=== PATIENT | female | born 1990 | race Caucasian/White ===

== ENCOUNTER 2017-03-02 09:48 | Emergency (ER) | payer MEDICAID ==
[~2017-03-02] VITALS: Ht 152.4 cm; Wt 60.0 kg
[2017-03-02 09:50] VITALS: Ht 152.4 cm; Wt 60.0 kg
[2017-03-02] MEDS ORDERED: SOD CHLORIDE 0.9% 1,000 ML IV STA (10:28)
[2017-03-02] MEDS ORDERED: METOCLOPRAMIDE 10 MG INJ IV STA (10:28)
[2017-03-02 10:55] LABS: ADD SCAN DIFF NO
[2017-03-02 10:57] LABS: BASOPHILS % 0.2 % (0.0-2.0); EOSINOPHILS % 0.2 % (0.0-7.0); HEMATOCRIT 36.8 % (37.0-47.0); LYMPHOCYTES # 0.8 10^3/ul (0.8-2.9); LYMPHOCYTES % 7.2 % (15.0-51.0); MEAN CORPUSCULAR HEMOGLOBIN 29.1 pg (29.0-33.0); MEAN CORPUSCULAR HGB CONC 35.3 g/dl (32.0-37.0); MEAN CORPUSCULAR VOLUME 82.3 fl (82.0-101.0); MONOCYTE # 0.5 10^3/ul (0.3-0.9); NEUTROPHIL # 9.1 10^3/ul (1.6-7.5); NEUTROPHILS % 87.1 % (39.0-77.0); PLATELET COUNT 293 10^3/UL (140-415); RED BLOOD COUNT 4.47 10^6/ul (4.20-5.40); RED CELL DISTRIBUTION WIDTH 13.2 % (11.5-14.5); WHITE BLOOD COUNT 10.5 10^3/ul (4.8-10.8)
[2017-03-02 10:59] LABS: ADD UMIC YES; URINE BILIRUBIN (Dip) NEGATIVE (NEGATIVE); URINE BLOOD (Dip) TRACE (NEGATIVE); URINE COLOR LT. YELLOW (YELLOW); URINE GLUCOSE (Dip) NEGATIVE (NEGATIVE); URINE KETONES (Dip) 3+ (NEGATIVE); URINE LEUKOCYTE ESTERASE (Dip) 1+ (NEGATIVE); URINE NITRITE (Dip) NEGATIVE (NEGATIVE); URINE TOTAL PROTEIN (Dip) 1+ (NEGATIVE); URINE UROBILINOGEN (Dip) 1.0 E.U./dL (0.1-1.0)
[2017-03-02 11:16] LABS: BACTERIA,URINE OCCASIONAL; URINE RBCS 0-2 /HPF (0)
--- NOTE | 2017-03-02 11:19 | RADRPT ---
PROCEDURE: OBSTETRICAL ULTRASOUND WITH ENDOVAGINAL IMAGES CLINICAL INDICATION: PAIN VOMIT TECHNIQUE: Multiple sonographic images of the pelvis were obtained utilizing a transabdominal and endovaginal technique. The images were reviewed on a PACS workstation. COMPARISON: None. LMP: 11/27/2016 FINDINGS: There is a single live intrauterine with heart rate of 174 beats per minute and [place] n-rump length of 7.53 cm which is consistent with a gestational age of 13 weeks, 4 days . The estimated date of delivery by ultrasound is 09/03/2017 . The estimated gestational age by LMP is 13 weeks, 4 days . The estimated date of delivery by LMP is 09/03/2017 . Bilateral ovaries are not visualized. There are no abnormal adnexal masses. No significant pelvic free fluid is identified. IMPRESSION: Single live intrauterine consistent with a gestational age of 13 weeks, 4 days . The estimated date of delivery is 09/03/2017 . Dating by ultrasound is consistent with dating by LMP. Bilateral ovaries are not visualized. There are no abnormal adnexal masses. RPTAT: EE Physician Eleanor Date Time Electronically viewed and signed by Physician Eleanor on 03/02/2017 11:19 /
[2017-03-02 11:37] LABS: ALBUMIN/GLOBULIN RATIO 1.61; BILIRUBIN,INDIRECT 0.4 mg/dl (0-1.1); BILIRUBIN,TOTAL 0.4 mg/dl (0.2-1.3); CALCIUM 10.1 mg/dl (8.4-10.2); CREATININE 0.53 mg/dl (0.44-1.00); POTASSIUM 3.8 mmol/L (3.5-5.1); TOTAL PROTEIN 8.1 g/dl (6.1-8.1)
[2017-03-02] MEDS ORDERED: SOD CHLORIDE 0.9% 1,000 ML IV ONE (11:43)
[2017-03-02] MEDS ORDERED: METO10TA92 PO (12:43)
--- NOTE | 2017-03-02 12:48 | ERD ---
ER Documentation Chief Complaint Date/Time DATE: 03/02/17 TIME: 12:46 Chief Complaint 12 WEEKS WITH VOMITING HPI This 26-year-old female who is a G1 para 0 presents with history of vomiting since early . The vomit is nonbilious nonbloody. She denies any vaginal bleeding or abdominal pain or diarrhea. She is taking Zofran provided by her OB without relief. ROS All systems reviewed and are negative except as per history of present illness. Medications Home Meds Active Scripts Metoclopramide* (Reglan*) 10 Mg Tablet, 10 MG PO Q6 Y for NAUSEA AND/OR VOMITING , #20 TAB Prov:ITZEL MCGINNIS MD 03/02/17 Allergies Allergies: Coded Allergies: Unknown: Unable to obtain (Unverified , 03/02/17) PMhx/Soc Medical and Surgical Hx: pt denies Medical Hx, pt denies Surgical Hx Hx Substance Use: No Hx Tobacco Use: No Smoking Status: Never smoker Physical Exam Vitals Vital Signs Date Time Temp Pulse Resp B/P Pulse Ox O2 Delivery O2 Flow Rate FiO2 03/02/17 09:50 98.1 99 18 119/82 99 Physical Exam Const: [] Alert, dry lips no apparent distress. Head: Atraumatic Eyes: Normal Conjunctiva ENT: Normal External Ears, Nose and Mouth. Her lips otherwise no acute findings Neck: Full range of motion..~ No meningismus. Resp: Clear to auscultation bilaterally Cardio: Regular rate and rhythm, no murmurs Abd: Soft, non tender, non distended. Normal bowel sounds Skin: No petechiae or rashes Back: No midline or flank tenderness Ext: No cyanosis, or edema Neur: Awake and alert Psych: Normal Mood and Affect Result Diagram: 03/02/17 1047 03/02/17 1047 Results 24 hrs Laboratory Tests Test 03/02/17 10:47 White Blood Count 10.510^3/ul Red Blood Count 4.4710^6/ul Hemoglobin 13.0g/dl Hematocrit 36.8% Mean Corpuscular Volume 82.3fl Mean Corpuscular Hemoglobin 29.1pg Mean Corpuscular Hemoglobin Concent 35.3g/dl Red Cell Distribution Width 13.2% Platelet Count 40795^3/UL Mean Platelet Volume 11.0fl Neutrophils % 87.1% Lymphocytes % 7.2% Monocytes % 5.0% Eosinophils % 0.2% Basophils % 0.2% Nucleated Red Blood Cells % 0.0/100WBC Neutrophils # 9.110^3/ul Lymphocytes # 0.810^3/ul Monocytes # 0.510^3/ul Eosinophils # 0.010^3/ul Basophils # 0.010^3/ul Nucleated Red Blood Cells # 0.010^3/ul Urine Color LT. YELLOW Urine Clarity SLIGHTLY CLOUDY Urine pH 6.0 Urine Specific [place] >=1.030 Urine Ketones 3+ Urine Nitrite NEGATIVE Urine Bilirubin NEGATIVE Urine Urobilinogen 1.0 E.U./dL Urine Leukocyte Esterase 1+ Urine Microscopic RBC 0-2/HPF Urine Microscopic WBC 2-5/HPF Urine Epithelial Cells OCCASIONAL Urine Bacteria OCCASIONAL Urine Hemoglobin TRACE Urine Glucose NEGATIVE% Urine Total Protein 1+ Sodium Level 141mmol/L Potassium Level 3.8mmol/L Chloride Level 104mmol/L Carbon Dioxide Level 20mmol/L Anion Gap 21 Blood Urea Nitrogen 6mg/dl Creatinine 0.53mg/dl Glucose Level 76mg/dl Calcium Level 10.1mg/dl Total Bilirubin 0.4mg/dl Direct Bilirubin 0.00mg/dl Indirect Bilirubin 0.4mg/dl Aspartate Amino Transf (AST/SGOT) 19IU/L Alanine Aminotransferase (ALT/SGPT) 31IU/L Alkaline Phosphatase 57IU/L Total Protein 8.1g/dl Albumin 5.0g/dl Globulin 3.10g/dl Albumin/Globulin Ratio 1.61 Lipase 35U/L Current Medications Medications (Trade) Dose Ordered Sig/Nathan Route PRN Reason Start Time Stop Time Status Last Admin Dose Admin Sodium Chloride (NS) 1,000 ml @ 1,000 mls/hr Q1H STAT IV 03/02/17 10:28 03/02/17 11:27 DC 03/02/17 10:44 Metoclopramide HCl 10 mg 10 mg ONCE STAT IV 03/02/17 10:28 03/02/17 10:30 DC 03/02/17 10:43 Sodium Chloride (NS) 1,000 ml @ 0 mls/hr Q0M ONCE IV 03/02/17 11:43 03/02/17 12:23 DC Procedures/MDM Pelvic ultrasound shows a normal-appearing 13 week intrauterine without adnexal masses or identifiable complications. Patient was given 2 L normal saline IV, CBC and CMP and lipase showed no acute abnormalities. Urine shows ketones and is concentrated as well as leukocyte Estrace but no white blood cells or bacteria. Patient was given Reglan 10 mg IV and felt better after observation and treatment. Patient presents with vomiting of without signs or symptoms of ectopic , acute abdomen, appendicitis, pyelonephritis or other emergent causes of presenting complaints. Patient will be discharged with the addition of Reglan to her medication regimen instructions for clear fluids and OB follow-up. Departure Diagnosis: Primary Impression: Hyperemesis Vomiting type: unspecified Nausea presence: unspecified Qualified Code: R11.10 - Intractable vomiting, presence of nausea not specified, unspecified vomiting type Additional Impression: Vomiting Vomiting type: unspecified Vomiting Intractability: unspecified Nausea presence: unspecified Qualified Code: R11.10 - Vomiting, intractability of vomiting not specified, presence of nausea not specified, unspecified vomiting type Condition: Stable Patient Instructions: Hyperemesis Gravidarum Additional Instructions: Recheck for new or worsening symptoms with primary care doctor and OB. Recheck for fevers, blood, new symptoms. ITZEL MCGINNIS MD Mar 02, 2017 12:48
== END 2017-03-02 13:12 | disposition home or self-care (01) ==
LOC: FTE 09:48
DX: O21.0 Mild hyperemesis gravidarum (principal); Z3A.13 13 weeks gestation of pregnancy
CPT/HCPCS: 36415; 76801; 80053; 81001; 83690; 85025; 96374; J2765; J7030; Z7502